=== PATIENT | male | born 1935 | race Caucasian/White ===

== ENCOUNTER 2016-10-27 09:08 | Emergency (ER) | payer BC, MEDICARE ==
[~2016-10-27 09:08] MED LIST: ALENDRONATE SOD70 MG PO; BUSPIRONE HCL15 MG PO; ELAVIL 25 MG TA25 MG PO; ENALAPRIL MALEA10 MG PO; FERROUS GLUCON324 M1 PO; FLOMAX 0.4 MG0.4 MG PO; ISOSORBIDE MONO30 MG PO; LOPRESSOR 25 MG25 MG PO; LORTAB 5-325 M1 EACH PO; MELOXICAM15 MG PO; NEURONTIN 300300 MG PO; OMEPRAZOLE40 MG PO; OXYBUTYNIN CHLOR5 M1 PO; SOTALOL AF80 MG PO; SYNTHROID88 MCG PO; TYLENOL 325MG325 MG PO
[2016-10-27 11:05] LABS: HEMOGLOBIN 11.1 gm/dl (14.0-17.5); RED BLOOD COUNT 3.31 M/UL (4.20-5.50); WHITE BLOOD COUNT 6.7 K/UL (4.5-11.0)
[2016-10-27 11:12] LABS: BUN/CREATININE RATIO 15 (0-10)
== END 2016-10-27 12:08 ==
LOC: ER1 09:08
PROVIDERS: Emergency Medicine
DX: T17.298A Other foreign object in pharynx causing other injury, initial encounter (principal); D64.9 Anemia, unspecified; D69.6 Thrombocytopenia, unspecified; I10 Essential (primary) hypertension; I25.810 Atherosclerosis of coronary artery bypass graft(s) without angina pectoris; Z95.1 Presence of aortocoronary bypass graft
CPT/HCPCS: 80053; 84484; 85025; 93005; 96374; 96375; 96376; 99285; J0360; J2270; J2405